=== PATIENT | male | born 1955 | race Caucasian/White ===

== ENCOUNTER → 2017-10-19 12:11 | Day surgery (SDC) | payer MEDICARE, MEDICAID ==
[~2017-10-19 12:11] MED LIST: Acetaminophen TAB* 325 MG ONE; Diazepam TAB(*) 5 MG PO PRN; Lidocaine 1% INJ* 10 MG/ML 30 ML SDV ONE; NS 0.9% 1000 ML* 1,000 ML IV SCH; ceFAZolin 2 GM PREMIX (*) 2 GM/50 ML BAG IVPB STA; ceFAZolin VIAL 1 GM in NS *SYRINGE * * 10 ML STA; fentaNYL* 50 MCG/ML 2 ML VIAL (100 MCG VIAL) ONE
[2017-10-19 16:19] VITALS: BP 111/64
--- NOTE | 2017-10-20 17:50 | OP ---
CC: Dr. Mustafa * DATE OF OPERATION: 10/19/17 - [facility] CATH DATE OF : 53 SURGEON: Matt Woods MD ANESTHESIA: Local anesthesia with conscious sedation. PRE-OP DIAGNOSES: Cardiomyopathy, ICD at elective replacement indicator. POST-OP DIAGNOSES: Cardiomyopathy, ICD at elective replacement indicator. OPERATIVE PROCEDURE: Single-chamber ICD generator change. ESTIMATED BLOOD LOSS: Nil. COMPLICATIONS: None. INDICATIONS: The patient is a 62-year-old gentleman with a history of cardiomyopathy, history of ICD implantation in 2007. The patient has been followed by Dr. Mustafa. His ICD has reached elective replacement indicator, generator change was recommended. DESCRIPTION OF PROCEDURE: The patient was brought to the procedure room in a fasting state. Informed consent had been obtained prior to the procedure. All labs had been reviewed. The patient was placed supine on the procedure table. His left deltopectoral area was cleaned and draped in usual fashion. 1% lidocaine was used for local anesthesia. A 4.5-cm incision was made in the superior aspect of the ICD, blunt dissection was carried down to the fiber sheath. The fiber sheath was opened and the ICD was removed from the pocket. The ICD was detached from the ventricular lead. The explanted device is a Medtronic, model I226KMB, serial number [id number]. It was removed and placed off the table. The ICD lead was interrogated and had an R-wave sensitivity of 13, impedance 460 ohms, threshold 0.7 volts at 0.5 milliseconds. The pocket was flushed. A new generator was attached to the ventricular lead. The new generator is a Medtronic model number [id number], serial number [id number]. The device was placed into the pocket. The surgical incision was closed in 3 layers. The patient was returned to the holding area in stable condition. [id number]/[facility] #: [id number] [facility]
== END | disposition home or self-care (01) ==
LOC: CHICATH 12:11
PROVIDERS: ATTEND Specialist
DX: Z45.02 Encounter for adjustment and management of automatic implantable cardiac defibrillator (principal); I42.8 Other cardiomyopathies; Z95.810 Presence of automatic (implantable) cardiac defibrillator; Z79.01 Long term (current) use of anticoagulants; I10 Essential (primary) hypertension; I25.10 Atherosclerotic heart disease of native coronary artery without angina pectoris; G47.33 Obstructive sleep apnea (adult) (pediatric); I73.9 Peripheral vascular disease, unspecified; R06.00 Dyspnea, unspecified; I49.5 Sick sinus syndrome; Z72.0 Tobacco use; I48.91 Unspecified atrial fibrillation; I25.2 Old myocardial infarction
CPT/HCPCS: 33262; 88300; A9270-GY; C1722; J0690; J3010

== ENCOUNTER → 2018-09-09 08:49 | Day surgery (SDC) | payer MEDICARE, MEDICAID ==
[~2018-09-09 08:49] MED LIST changes: -Acetaminophen TAB* 325 MG ONE; +Buffered Lidocaine 0.9% SYRIN* 5 ML/SYR SYRINGE INTRADERM ONE; -Diazepam TAB(*) 5 MG PO PRN; +Lactated Ringers 1000 ML Bag* 1,000 ML IV SCH; -Lidocaine 1% INJ* 10 MG/ML 30 ML SDV ONE; +Lidocaine 2% PF * 5 ML VIAL ONE; +Midazolam* 1 MG/ML 2 ML VIAL (2 MG) ONE; -NS 0.9% 1000 ML* 1,000 ML IV SCH; +Propofol* 10 MG/ML 20 ML BTL ONE; -ceFAZolin 2 GM PREMIX (*) 2 GM/50 ML BAG IVPB STA; -ceFAZolin VIAL 1 GM in NS *SYRINGE * * 10 ML STA
[2018-09-09 12:19] VITALS: BP 117/71
--- NOTE | 2018-09-09 23:32 | PRO ---
CC: Luis Felipe Avalos NP* COLONOSCOPY REPORT: DATE OF PROCEDURE: 09/09/18 PRIMARY CARE PHYSICIAN: Luis Felipe Avalos NP INDICATIONS FOR PROCEDURE: Screening colonoscopy. PROCEDURE PERFORMED: Complete colonoscopy to the cecum with cold snare polypectomy x4 and biopsy polypectomy x4. MEDICATIONS GIVEN: Please see anesthesia record. DESCRIPTION OF PROCEDURE: After the colonoscopy procedure, including the risks , benefits, and alternatives with risks not limited to perforation, surgery, missed lesions, and/or were explained to the patient, written informed consent was obtained and IV medication was given, a rectal exam was performed. Rectal exam was grossly unremarkable. The adult Olympus colonoscope was then inserted into the patient's rectum and advanced very carefully through the entirety of the colon and into the cecal base. The cecal base was normal in appearance. The terminal ileal valve was identified. Over the next 15 minutes , the scope was carefully withdrawn inspecting the mucosa. In the ascending colon, 2 polyps were removed; 1 was 1 cm in size, removed with cold snare polypectomy, this was in the distal portion of the ascending colon. An additional diminutive polyp was removed with biopsy polypectomy in the ascending colon. On return to the transverse colon, 2 small diminutive polyps removed with biopsy polypectomy, again 0.3 to 0.4 cm in size. On returning to the sigmoid colon, 3 polyps were removed with cold snare polypectomy of size 0.5 to 0.9 cm and 2 additional small polyps were removed with biopsy polypectomy. There was mild left-sided diverticulosis coli. On return to the rectum, the direct views were normal. On retroflexion, there was grade 1 internal hemorrhoids. The preparation was good. Of note, he did have a lipoma that was visualized at 30 cm with good pillowing. The scope was removed from the patient. He tolerated the procedure well. He returned to the recovery room in stable condition. IMPRESSION: 1. Complete colonoscopy to the cecum with cold snare and biopsy polypectomy. 2. Cold snare polypectomy x4 and biopsy polypectomy x4 as above. 3. Mild left-sided diverticulosis coli. 4. Grade 1 internal hemorrhoids. RECOMMENDATIONS: 1. Repeat colonoscopy in 3 years pending pathology. 2. Resume Coumadin in 48 hours given the size of polyps. [id number]/[facility] #: [id number] [facility]
== END | disposition home or self-care (01) ==
LOC: ENDO 08:49
PROVIDERS: ATTEND Internal Medicine Gastroenterology
DX: Z12.11 Encounter for screening for malignant neoplasm of colon (principal); D12.2 Benign neoplasm of ascending colon; D12.3 Benign neoplasm of transverse colon; D12.5 Benign neoplasm of sigmoid colon; K63.5 Polyp of colon; K57.30 Diverticulosis of large intestine without perforation or abscess without bleeding; K64.0 First degree hemorrhoids; D17.5 Benign lipomatous neoplasm of intra-abdominal organs; I25.2 Old myocardial infarction; J44.9 Chronic obstructive pulmonary disease, unspecified; I73.9 Peripheral vascular disease, unspecified; I48.91 Unspecified atrial fibrillation; I10 Essential (primary) hypertension; I25.10 Atherosclerotic heart disease of native coronary artery without angina pectoris; N40.0 Benign prostatic hyperplasia without lower urinary tract symptoms; Z95.810 Presence of automatic (implantable) cardiac defibrillator; Z79.01 Long term (current) use of anticoagulants; Z79.899 Other long term (current) drug therapy; F17.210 Nicotine dependence, cigarettes, uncomplicated
CPT/HCPCS: 88305; J2250; J2704; J3010

== ENCOUNTER 2018-11-15 10:58 | Day surgery (SDC) | payer MEDICARE, MEDICAID ==
[~2018-11-15 10:58] MED LIST changes: +Acetaminophen TAB* 325 MG PO PRN; -Buffered Lidocaine 0.9% SYRIN* 5 ML/SYR SYRINGE INTRADERM ONE; +Cyclopentolate 1% OPTH.SOL* 2 ML BTL ONE; +Ketorolac 0.5% OPHTH (NF) 0.5 % 5 ML BTL ONE; -Lactated Ringers 1000 ML Bag* 1,000 ML IV SCH; +Lidocaine 1%* 5 ML VIAL ONE; -Lidocaine 2% PF * 5 ML VIAL ONE; -Midazolam* 1 MG/ML 2 ML VIAL (2 MG) ONE; +Neomycin/Polymy/Dex OPHTH.OIN* 3.5 GM ONE; +Phenylephrine 2.5% OPTH.SOL* 2 ML BTL ONE; +Povidone Iodine 5% OPTH* 30 ML BTL ONE; -Propofol* 10 MG/ML 20 ML BTL ONE; +Tetracaine 0.5% OPTH.SOL 4 ML* 1 DROP BTL ONE; +Tropicamide 1% OPTH.SOL* BTL ONE; +acetaZOLAMIDE TAB* 250 MG ONE; -fentaNYL* 50 MCG/ML 2 ML VIAL (100 MCG VIAL) ONE
[2018-11-15] MEDS ORDERED: Midazolam* 1 MG/ML 2 ML VIAL (2 MG) ONE (12:17)
[2018-11-15 13:21] VITALS: BP 88/56
--- NOTE | 2018-11-15 15:39 | OP ---
DATE OF OPERATION: 11/15/2018 - [facility] DATE OF : 1955. SURGEON: Loc Zapien MD ANESTHESIA: Monitored anesthesia care. PREOPERATIVE DIAGNOSIS: Cataract, right eye. POSTOPERATIVE DIAGNOSIS: Cataract, right eye. OPERATIVE PROCEDURE: Extracapsular cataract extraction of the right eye with intraocular lens implant. IMPLANT: SN60WF 20.0 diopter lens to the right eye. COMPLICATIONS: None. DESCRIPTION OF PROCEDURE: The patient was given phenylephrine 2.5 % and cyclopentolate 1% eye drops to the operative eye in the preoperative area. The patient was taken to the operating room where a time-out was taken to identify the correct patient, site, and side of surgery. The patient's right eye was prepped and draped in the usual sterile fashion with 5% Betadine. A second time- out was taken to verify the correct patient, side, and site of surgery, as well as the correct lens implant. A lid speculum was placed to the right eye. A 1mm paracentesis blade was used to make a clear corneal incision. Preservative-free 1% lidocaine was injected into the anterior chamber. DisCoVisc was then injected into the anterior chamber. A 2.75 mm keratome blade was used to make a triplanar incision. A cystotome initiated a capsulorrhexis, which was completed with Utrata forceps in a continuous and curvilinear manner. Hydrodissection of the lens was performed with BSS on a cannula. The lens could be spun in a capsular bag. The phacoemulsification handpiece was used with a divide-and- conquer technique to remove the nucleus. The I/A handpiece then removed the residual cortical lens material. DisCoVisc was injected to inflate the capsular bag. The planned SN60WF 20.0 diopter lens was injected into the capsular bag. The residual DisCoVisc was removed from the eye with the I/A handpiece. The corneal incisions were hydrated and no leaks occurred at physiologic pressure around 20 mmHg per palpation. The lid speculum was removed and drapes were removed. Maxitrol ointment was placed to the surface of the operative eye. An adhesive patch and shield was then placed on the operative eye. The patient was taken to the post-operative area in stable condition. [id number]/[facility] #: [id number] [facility]
== END 2018-11-15 13:33 | disposition home or self-care (01) ==
LOC: OREAST 10:58
PROVIDERS: ATTEND Student in an Organized Health Care Education/Training Program
DX: H25.811 Combined forms of age-related cataract, right eye (principal); Z72.0 Tobacco use; J44.9 Chronic obstructive pulmonary disease, unspecified; I10 Essential (primary) hypertension; E78.00 Pure hypercholesterolemia, unspecified; Z95.810 Presence of automatic (implantable) cardiac defibrillator; I25.2 Old myocardial infarction; Z79.01 Long term (current) use of anticoagulants; I42.9 Cardiomyopathy, unspecified; I20.9 Angina pectoris, unspecified
CPT/HCPCS: A9270-GY; J2250; V2632

== ENCOUNTER 2018-11-22 10:12 | Day surgery (SDC) | payer MEDICARE, MEDICAID ==
[~2018-11-22 10:12] MED LIST changes: -Cyclopentolate 1% OPTH.SOL* 2 ML BTL ONE; -Ketorolac 0.5% OPHTH (NF) 0.5 % 5 ML BTL ONE; -Lidocaine 1%* 5 ML VIAL ONE; -Neomycin/Polymy/Dex OPHTH.OIN* 3.5 GM ONE; -Phenylephrine 2.5% OPTH.SOL* 2 ML BTL ONE; -Povidone Iodine 5% OPTH* 30 ML BTL ONE; -Tetracaine 0.5% OPTH.SOL 4 ML* 1 DROP BTL ONE; -Tropicamide 1% OPTH.SOL* BTL ONE; -acetaZOLAMIDE TAB* 250 MG ONE
[2018-11-22] MEDS ORDERED: Buffered Lidocaine 1% SYRIN* 1 ML/SYRINGE INTRADERM ONE (10:59)
[2018-11-22] MEDS ORDERED: Midazolam* 1 MG/ML 5 ML VIAL (5 MG) ONE (11:50)
[2018-11-22 13:05] VITALS: BP 96/61
[2018-11-22] MEDS ORDERED: Cyclopentolate 1% OPTH.SOL* 2 ML BTL ONE (13:11)
[2018-11-22] MEDS ORDERED: Ketorolac 0.5% OPHTH (NF) 0.5 % 5 ML BTL ONE (13:11)
[2018-11-22] MEDS ORDERED: Lidocaine 1%* 5 ML VIAL ONE (13:11)
[2018-11-22] MEDS ORDERED: Neomycin/Polymy/Dex OPHTH.OIN* 3.5 GM ONE (13:11)
[2018-11-22] MEDS ORDERED: Tetracaine 0.5% OPTH.SOL 4 ML* 1 DROP BTL ONE (13:11)
[2018-11-22] MEDS ORDERED: Povidone Iodine 5% OPTH* 30 ML BTL ONE (13:11)
[2018-11-22] MEDS ORDERED: Tropicamide 1% OPTH.SOL* BTL ONE (13:11)
[2018-11-22] MEDS ORDERED: acetaZOLAMIDE TAB* 250 MG ONE (13:11)
--- NOTE | 2018-11-22 14:01 | OP ---
DATE OF OPERATION: 11/22/18 - [facility] DATE OF : 53 SURGEON: Loc Zapien MD ANESTHESIA: Monitored anesthesia care. PREOPERATIVE DIAGNOSIS: Cataract, left eye. POSTOPERATIVE DIAGNOSIS: Cataract, left eye. OPERATIVE PROCEDURE: Extracapsular cataract extraction of the left eye with intraocular lens implant. IMPLANT: SN60WF 21.5 diopter lens to the left eye. COMPLICATIONS: None. DESCRIPTION OF PROCEDURE: The patient was given phenylephrine 2.5 % and cyclopentolate 1% eye drops to the operative eye in the preoperative area. The patient was taken to the operating room where a time-out was taken to identify the correct patient, site, and side of surgery. The patient's left eye was prepped and draped in the usual sterile fashion with 5% Betadine. A second time- out was taken to verify the correct patient, side, and site of surgery, as well as the correct lens implant. A lid speculum was placed to the left eye. A 1mm paracentesis blade was used to make a clear corneal incision. Preservative-free 1% lidocaine was injected into the anterior chamber. DisCoVisc was then injected into the anterior chamber. A 2.75 mm keratome blade was used to make a triplanar incision. A cystotome initiated a capsulorrhexis, which was completed with Utrata forceps in a continuous and curvilinear manner. Hydrodissection of the lens was performed with BSS on a cannula. The lens could be spun in a capsular bag. The phacoemulsification handpiece was used with a divide-and- conquer technique to remove the nucleus. The I/A handpiece then removed the residual cortical lens material. DisCoVisc was injected to inflate the capsular bag. The planned SN60WF 21.5 diopter lens was injected into the capsular bag. The residual DisCoVisc was removed from the eye with the I/A handpiece. The corneal incisions were hydrated and no leaks occurred at physiologic pressure around 20 mmHg per palpation. The lid speculum was removed and drapes were removed. Maxitrol ointment was placed to the surface of the operative eye. An adhesive patch and shield was then placed on the operative eye. The patient was taken to the postoperative area in stable condition. [id number]/[facility] #: [id number] [facility]
== END 2018-11-22 13:07 | disposition home or self-care (01) ==
LOC: OREAST 10:12
PROVIDERS: ATTEND Student in an Organized Health Care Education/Training Program
DX: H25.12 Age-related nuclear cataract, left eye (principal); Z72.0 Tobacco use; Z79.01 Long term (current) use of anticoagulants; J44.9 Chronic obstructive pulmonary disease, unspecified; I10 Essential (primary) hypertension; E78.00 Pure hypercholesterolemia, unspecified; Z95.5 Presence of coronary angioplasty implant and graft; Z95.0 Presence of cardiac pacemaker; I25.10 Atherosclerotic heart disease of native coronary artery without angina pectoris; I25.2 Old myocardial infarction; I42.9 Cardiomyopathy, unspecified
CPT/HCPCS: A9270-GY; J2250; V2632

== ENCOUNTER 2018-12-14 07:34 | Emergency (ER) | payer MEDICARE, MEDICAID ==
[2018-12-14] MEDS: NS 0.9% 1000 ML** 1,000 ML IV ONE ×2 (07:52→08:45)
[2018-12-14 08:12] LABS: ABS Basophils 0 10^3/ul (0-0.2); ABS Eosinophils 0.1 10^3/ul (0-0.6); ABS Lymphocytes 1.9 10^3/ul (1.0-4.8); ABS Monocytes 1.1 10^3/ul (0-0.8); ABS Neutrophils 8.6 10^3/ul (1.5-7.7); ABS Nucleated RBC 0 10^3/ul; Eosinophil % 0.5 %; Hematocrit 45 % (36-46); Lymphocyte % 15.9 %; Mean Corpuscular HGB Conc 34 g/dL (31-36); Mean Corpuscular Hemoglobin 32 pg (27-31); Mean Corpuscular Volume 96 fL (80-94); Mean Platelet Volume 7.9 fL (7.4-10.4); Nucleated Red Blood Cells % 0.2; Platelet Count 132 10^3/uL (150-450); Red Blood Count 4.66 10^6 /uL (4.18-5.48); Red Cell Distribution Width 14 % (10.5-15); White Blood Count 11.7 10^3/uL (3.5-10.8)
[2018-12-14 08:31] LABS: Albumin 3.7 g/dL (3.2-5.2); Albumin/Globulin Ratio 1.7 (1-3); BUN/Creatinine Ratio 24.9 (8-20); C Reactive Protein 3.11 mg/L (<8.01); Calcium 9.2 mg/dL (8.6-10.3); EGFR African American 35.7 (>60); EGFR Non-African American 29.5 (>60); Globulin 2.2 g/dL (2-4); Magnesium 2.3 mg/dL (1.9-2.7); Total Bilirubin 1.1 mg/dL (0.2-1.0); Total Protein 5.9 g/dL (6.4-8.9); Troponin I 0.02 ng/mL (<0.04)
[2018-12-14] MEDS ORDERED: NS 0.9% 1000 ML** 1,000 ML IV ONE (08:46)
[2018-12-14 08:55] LABS: INR 6.58 (0.77-1.02)
[2018-12-14 09:12] LABS: TSH (Thyroid Stimulating Horm) 2.67 mcIU/mL (0.34-5.60)
[2018-12-14 09:52] LABS: Urine Appearance Clear; Urine Bilirubin Negative (Negative); Urine Blood Negative (Negative); Urine Color Yellow; Urine Glucose Negative (Negative); Urine Ketones Trace (Negative); Urine Nitrite Negative (Negative); Urine Protein Negative (Negative); Urine Specific Gravity 1.013 (1.010-1.030); Urine Urobilinogen Negative (Negative)
[2018-12-14 10:46] LABS: Albumin 3.8 g/dL (3.2-5.2); Albumin/Globulin Ratio 1.9 (1-3); BUN/Creatinine Ratio 25.6 (8-20); Calcium 8.6 mg/dL (8.6-10.3); EGFR African American 41.1 (>60); Potassium 3.7 mmol/L (3.5-5.0); Total Bilirubin 1.2 mg/dL (0.2-1.0); Total Protein 5.8 g/dL (6.4-8.9)
[2018-12-14 11:14] VITALS: BP 90/61
--- NOTE | 2018-12-14 16:50 | ED ---
HPI Cardiac - HPI Summary HPI Summary: Patient is a 63-year-old male who was recently seen for bronchitis presenting to the ED with "weakness." He states symptoms have been present x several days. He denies any cough or congestion. He denies any headache or visual changes. Patient endorses 2 episodes of diarrhea in the past 2 days, this is not profuse or malodorous. Denies any nausea or vomiting. Currently taking warfarin for A. fib as well as blood pressure medications. No change in his medications. PCP is Cat Avalos. Patient states symptoms are not alleviated with resting and he is not attempted to exert himself in the last few days. He denies any worsening cough or congestion. Denies any SOB or CP. Denies urinary symptoms. He states he is unable to describe his symptoms other then himself as "weak." - History of Current Complaint Chief Complaint: EDGeneral Stated Complaint: GENERAL ILLNESS PER EMS Time Seen by Provider: 12/14/18 07:38 Hx Obtained From: Patient Onset/Duration: Started Days Ago Timing: Constant Initial Severity: Moderate Current Severity: Moderate Pain Intensity: 0 Pain Scale Used: 0-10 Numeric Aggravating Factor(s): Exertion Alleviating Factor(s): Rest Associated Signs and Symptoms: Positive: Negative - Risk Factors Pulmonary Embolism Risk Factors: Negative Cardiac Risk Factors: Negative TAD Risk Factors: Negative - Allergy/Home Medications Allergies/Adverse Reactions: Allergies Allergy/AdvReac Type Severity Reaction Status Date / Time No Known Allergies Allergy Verified 12/11/18 06:52 PMH/Surg Hx/FS Hx/Imm Hx Previously Healthy: Yes Endocrine/Hematology History: Reports: Hx Anticoagulant Therapy - warfarin Denies: Hx Diabetes Cardiovascular History: Reports: Hx Congestive Heart Failure - on durtetics, Hx Coronary Artery Disease, Hx Hypercholesterolemia, Hx Hypertension, Hx Pacemaker/ ICD, Hx Peripheral Vascular Disease - poor circulation to legs, Other Cardiovascular Problems/Disorders - CARDIOMYOPATHY Respiratory History: Reports: Hx Asthma, Hx Chronic Obstructive Pulmonary Disease (COPD), Hx Sleep Apnea - does not use a machine, Other Respiratory Problems/Disorders - smoker GI History: Reports: Other GI Disorders - umbilical hernia History: Reports: Hx Kidney Stones - x2, last one 2015, Other Problems/ Disorders - BPH Denies: Hx Renal Disease Musculoskeletal History: Reports: Hx Arthritis, Other Musculoskeletal History - sciatica at times Sensory History: Reports: Hx Cataracts - both eyes, Hx Contacts or Glasses - glasses, Hx Hearing Aid - left ear- don't wear Opthamlomology History: Reports: Hx Cataracts - both eyes, Hx Contacts or Glasses - glasses Neurological History: Reports: Hx Migraine - many years ago, Hx Nerve Disease - 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 Lt FEMUR - EXPLORATORY -. AAA- GRAFTING/MESH (MADE OF VELOUR GRAFTING)- Pt HAS A CARD. KIDNEY STENT. tonsillectomy as a child Hx Anesthesia Reactions: No - Immunization History Hx Pertussis Vaccination: No Immunizations Up to Date: Yes Infectious Disease History: No Infectious Disease History: Denies: Traveled Outside the [place] in Last 30 Days - Family History Known Family History: Positive: None, Diabetes, Other - Cancer, Non-Contributory Family History: R & n/C - Social History Occupation: Unemployed Lives: Alone Alcohol Use: None Hx Substance Use: No Substance Use Type: Reports: Marijuana Substance Use Comment - Amount & Last Used: occassionally Hx Tobacco Use: Yes Smoking Status (MU): Light Every Day Tobacco Smoker Amount Used/How Often: 10 cigarettes a day Review of Systems Constitutional: Negative Negative: Fever, Chills, Fatigue, Skin Diaphoresis Negative: Palpitations, Chest Pain Negative: Shortness Of Breath, Cough Negative: Abdominal Pain, Vomiting, Diarrhea, Nausea Positive: no symptoms reported, see HPI Negative: Arthralgia, Myalgia Positive: Weakness All Other Systems Reviewed And Are Negative: Yes Physical Exam Triage Information Reviewed: Yes Vital Signs On Initial Exam: Initial Vitals Temp Pulse Resp BP Pulse Ox 97 F 64 16 83/58 96 12/14/18 07:40 12/14/18 07:40 12/14/18 07:40 12/14/18 07:40 12/14/18 07:40 Vital Signs Reviewed: Yes Appearance: Positive: Well-Appearing, Well-Nourished Skin: Positive: Warm, Skin Color Reflects Adequate Perfusion Neck: Positive: Supple, No Lymphadenopathy Respiratory/Lung Sounds: Positive: Clear to Auscultation, Breath Sounds Present Cardiovascular: Positive: RRR, Pulses are Symmetrical in both Upper and Lower Extremities Musculoskeletal: Positive: Strength/ROM Intact Neurological: Positive: Speech Normal Psychiatric: Positive: Affect/Mood Appropriate AVPU Assessment: Alert Diagnostics - Vital Signs Vital Signs Temp Pulse Resp BP Pulse Ox 12/14/18 11:19 97.6 F 58 16 90/61 97 12/14/18 11:11 58 15 90/61 97 12/14/18 11:00 64 17 94 12/14/18 10:43 63 13 86/57 97 12/14/18 10:42 19 61/32 12/14/18 10:11 67 16 88/59 96 12/14/18 10:00 68 13 96 12/14/18 09:42 78 15 78/58 96 12/14/18 09:30 18 78/54 12/14/18 09:00 69 20 88 12/14/18 08:41 72 13 67/48 95 12/14/18 08:11 65 15 79/61 96 12/14/18 08:00 64 14 96 12/14/18 07:41 67 9 83/58 95 12/14/18 07:40 97 F 69 16 83/58 97 - Laboratory Lab Results: Lab Results 12/14/18 12/14/18 12/14/18 Range/Units 08:01 08:01 08:01 WBC 11.7 H (3.5-10.8) 10^3/uL RBC 4.66 (4.18-5.48) 10^6 /uL Hgb 15.0 (14.0-18.0) g/dL Hct 45 (36-46) % MCV 96 H (80-94) fL MCH 32 H (27-31) pg MCHC 34 (31-36) g/dL RDW 14 (10.5-15) % Plt Count 132 L (150-450) 10^3/uL MPV 7.9 (7.4-10.4) fL Neut % (Auto) 73.5 % Lymph % (Auto) 15.9 % [place] % (Auto) 9.7 % Eos % (Auto) 0.5 % Baso % (Auto) 0.4 % Absolute Neuts (auto) 8.6 H (1.5-7.7) 10^3/ul Absolute Lymphs (auto) 1.9 (1.0-4.8) 10^3/ul Absolute Monos (auto) 1.1 H (0-0.8) 10^3/ul Absolute Eos (auto) 0.1 (0-0.6) 10^3/ul Absolute Basos (auto) 0 (0-0.2) 10^3/ul Absolute Nucleated RBC 0 10^3/ul Nucleated RBC % 0.2 INR (Anticoag Therapy) 6.58 H* (0.77-1.02) APTT 38.0 H (26.0-36.3) seconds Sodium 133 L (135-145) mmol/L Potassium 4.0 (3.5-5.0) mmol/L Chloride 102 (101-111) mmol/L Carbon Dioxide 24 (22-32) mmol/L Anion Gap 7 (2-11) mmol/L BUN 56 H (6-24) mg/dL Creatinine 2.25 H (0.67-1.17) mg/dL Est GFR ( Amer) 35.7 (>60) Est GFR (Non-Af Amer) 29.5 (>60) BUN/Creatinine Ratio 24.9 H (8-20) Glucose 100 (70-100) mg/dL Lactic Acid (0.5-2.0) mmol/L Calcium 9.2 (8.6-10.3) mg/dL Magnesium 2.3 (1.9-2.7) mg/dL Total Bilirubin 1.10 H (0.2-1.0) mg/dL AST 19 (13-39) U/L ALT 11 (7-52) U/L Alkaline Phosphatase 44 (34-104) U/L Troponin I 0.02 (<0.04) ng/mL C-Reactive Protein 3.11 (<8.01) mg/L B-Natriuretic Peptide (<=100) pg/mL Total Protein 5.9 L (6.4-8.9) g/dL Albumin 3.7 (3.2-5.2) g/dL Globulin 2.2 (2-4) g/dL Albumin/Globulin Ratio 1.7 (1-3) TSH 2.67 (0.34-5.60) mcIU/mL Urine Color Urine Appearance Urine pH (5-9) Ur Specific [place] (1.010-1.030) Urine Protein (Negative) Urine Ketones (Negative) Urine Blood (Negative) Urine Nitrate (Negative) Urine Bilirubin (Negative) Urine Urobilinogen (Negative) Ur Leukocyte Esterase (Negative) Urine Glucose (Negative) 12/14/18 12/14/18 12/14/18 Range/Units 08:01 08:01 09:32 WBC (3.5-10.8) 10^3/uL RBC (4.18-5.48) 10^6 /uL Hgb (14.0-18.0) g/dL Hct (36-46) % MCV (80-94) fL MCH (27-31) pg MCHC (31-36) g/dL RDW (10.5-15) % Plt Count (150-450) 10^3/uL MPV (7.4-10.4) fL Neut % (Auto) % Lymph % (Auto) % [place] % (Auto) % Eos % (Auto) % Baso % (Auto) % Absolute Neuts (auto) (1.5-7.7) 10^3/ul Absolute Lymphs (auto) (1.0-4.8) 10^3/ul Absolute Monos (auto) (0-0.8) 10^3/ul Absolute Eos (auto) (0-0.6) 10^3/ul Absolute Basos (auto) (0-0.2) 10^3/ul Absolute Nucleated RBC 10^3/ul Nucleated RBC % INR (Anticoag Therapy) (0.77-1.02) APTT (26.0-36.3) seconds Sodium (135-145) mmol/L Potassium (3.5-5.0) mmol/L Chloride (101-111) mmol/L Carbon Dioxide (22-32) mmol/L Anion Gap (2-11) mmol/L BUN (6-24) mg/dL Creatinine (0.67-1.17) mg/dL Est GFR ( Amer) (>60) Est GFR (Non-Af Amer) (>60) BUN/Creatinine Ratio (8-20) Glucose (70-100) mg/dL Lactic Acid 1.1 (0.5-2.0) mmol/L Calcium (8.6-10.3) mg/dL Magnesium (1.9-2.7) mg/dL Total Bilirubin (0.2-1.0) mg/dL AST (13-39) U/L ALT (7-52) U/L Alkaline Phosphatase (34-104) U/L Troponin I (<0.04) ng/mL C-Reactive Protein (<8.01) mg/L B-Natriuretic Peptide 141 H (<=100) pg/mL Total Protein (6.4-8.9) g/dL Albumin (3.2-5.2) g/dL Globulin (2-4) g/dL Albumin/Globulin Ratio (1-3) TSH (0.34-5.60) mcIU/mL Urine Color Yellow Urine Appearance Clear Urine pH 5.0 (5-9) Ur Specific [place] 1.013 (1.010-1.030) Urine Protein Negative (Negative) Urine Ketones Trace A (Negative) Urine Blood Negative (Negative) Urine Nitrate Negative (Negative) Urine Bilirubin Negative (Negative) Urine Urobilinogen Negative (Negative) Ur Leukocyte Esterase Negative (Negative) Urine Glucose Negative (Negative) 12/14/18 Range/Units 10:19 WBC (3.5-10.8) 10^3/uL RBC (4.18-5.48) 10^6 /uL Hgb (14.0-18.0) g/dL Hct (36-46) % MCV (80-94) fL MCH (27-31) pg MCHC (31-36) g/dL RDW (10.5-15) % Plt Count (150-450) 10^3/uL MPV (7.4-10.4) fL Neut % (Auto) % Lymph % (Auto) % [place] % (Auto) % Eos % (Auto) % Baso % (Auto) % Absolute Neuts (auto) (1.5-7.7) 10^3/ul Absolute Lymphs (auto) (1.0-4.8) 10^3/ul Absolute Monos (auto) (0-0.8) 10^3/ul Absolute Eos (auto) (0-0.6) 10^3/ul Absolute Basos (auto) (0-0.2) 10^3/ul Absolute Nucleated RBC 10^3/ul Nucleated RBC % INR (Anticoag Therapy) (0.77-1.02) APTT (26.0-36.3) seconds Sodium 134 L (135-145) mmol/L Potassium 3.7 (3.5-5.0) mmol/L Chloride 103 (101-111) mmol/L Carbon Dioxide 25 (22-32) mmol/L Anion Gap 6 (2-11) mmol/L BUN 51 H (6-24) mg/dL Creatinine 1.99 H (0.67-1.17) mg/dL Est GFR ( Amer) 41.1 (>60) Est GFR (Non-Af Amer) 34.0 (>60) BUN/Creatinine Ratio 25.6 H (8-20) Glucose 88 (70-100) mg/dL Lactic Acid (0.5-2.0) mmol/L Calcium 8.6 (8.6-10.3) mg/dL Magnesium (1.9-2.7) mg/dL Total Bilirubin 1.20 H (0.2-1.0) mg/dL AST 19 (13-39) U/L ALT 12 (7-52) U/L Alkaline Phosphatase 40 (34-104) U/L Troponin I (<0.04) ng/mL C-Reactive Protein (<8.01) mg/L B-Natriuretic Peptide (<=100) pg/mL Total Protein 5.8 L (6.4-8.9) g/dL Albumin 3.8 (3.2-5.2) g/dL Globulin 2.0 (2-4) g/dL Albumin/Globulin Ratio 1.9 (1-3) TSH (0.34-5.60) mcIU/mL Urine Color Urine Appearance Urine pH (5-9) Ur Specific [place] (1.010-1.030) Urine Protein (Negative) Urine Ketones (Negative) Urine Blood (Negative) Urine Nitrate (Negative) Urine Bilirubin (Negative) Urine Urobilinogen (Negative) Ur Leukocyte Esterase (Negative) Urine Glucose (Negative) Result Diagrams: 12/14/18 08:01 12/14/18 10:19 Lab Statement: Any lab studies that have been ordered have been reviewed, and results considered in the medical decision making process. Disposition - Course Course Of Treatment: During the course treatment, the patient is given 2 L fluids. Labs obtained which show a supratherapeutic INR at 6.58. WBC is 11.7. Increased BUN creatinine at 56 and 2.25 respectively. He is redrawn at 51 and 1.99 after fluids given. BP soft at 83/58. This subsequently increased to 105/75 prior to discharge. Patient states he is feeling improved after 2L fluids. He may be having weakness d/t his low BP. He will not take his BP medications this morning and will follow up with PCP for recheck. He will also hold 2 doses of his warfarin and recheck. He voices understanding of instructions. - Diagnoses Provider Diagnoses: Weakness, Supratherapeutic INR, Hypotension Discharge - Sign-Out/Discharge Documenting (check all that apply): Patient Departure Patient Received Moderate/Deep Sedation with Procedure: No - Discharge Plan Condition: Stable Disposition: HOME Patient Education Materials: Elevated INR (ED) Referrals: Luis Felipe Avalos, OPTOMETRY PROFESSOR [Primary Care Provider] - Additional Instructions: Hold off on your warfarin dosages x 2, then recheck Please call Luis Felipe Avalos for a follow up. Drink plenty of water - you are dehydrated Do not take your BP medications today - if you still feel weak tomorrow, I would suggest calling your PCP and doing a recheck of your blood pressure - Billing Disposition and Condition Condition: STABLE Disposition: Home
== END 2018-12-14 11:19 | disposition home or self-care (01) ==
LOC: ED 07:34
DX: R53.1 Weakness (principal); I95.9 Hypotension, unspecified; R79.1 Abnormal coagulation profile; F17.210 Nicotine dependence, cigarettes, uncomplicated; Z79.01 Long term (current) use of anticoagulants; I50.9 Heart failure, unspecified; Z87.442 Personal history of urinary calculi; I48.91 Unspecified atrial fibrillation; Z95.810 Presence of automatic (implantable) cardiac defibrillator
CPT/HCPCS: 36415; 71046; 80053; 81003; 83605; 83735; 83880; 84443; 84484; 85025; 85610; 85730; 86140; 93005; 96360; 96361; 99284

== ENCOUNTER 2019-10-19 11:17 | Day surgery (SDC) | payer MEDICARE, MEDICAID ==
[~2019-10-19 11:17] MED LIST changes: -Acetaminophen TAB* 325 MG PO PRN; +HYDROmorphone INJ1* 1 MG/ML SYRINGE IV PRN; +Naloxone* 0.4 MG/ML 1 ML VIAL IV PRN; +Ondansetron INJ* 2 MG/ML VIAL IV PRN
[2019-10-19 12:13] LABS: INR 2.18 (0.82-1.09)
[2019-10-19] MEDS ORDERED: Benzocaine/Butamben/Tetracain (CETACAINE - SINGLE USE) 5 gm TOPICAL ONE (12:33)
[2019-10-19] MEDS ORDERED: Rocuronium* 10 MG/ML VIAL ONE (13:15)
[2019-10-19] MEDS ORDERED: Propofol* 10 MG/ML 20 ML BTL ONE (13:15)
[2019-10-19] MEDS ORDERED: Sugammadex * 200 MG/2 ML VIAL IV PUSH ONE (14:40)
[2019-10-19] MEDS ORDERED: Levalbuterol 1.25MG/0.5ML NEB ONE (15:14)
--- NOTE | 2019-10-19 15:35 | BRIEFOPN ---
Brief Operative/Procedure Note - Operation Details Pre-Op Diagnosis: Lung mass Post-Op Diagnosis: Lung cancer Procedures: Bronchoscopy/EBUS with FNA of mediastinal, hilar nodes and endobronchial biopsy from KAREEN lesion Surgeon(s)/Proceduralists: filomena Bajwa Anesthesia: GA Estimated Blood Loss: Negligable Findings: Endobronchial lesion in KAREEN takeoff with narrowing of bronchus. Lymph nodes in mediastinum on both sides negative for metastatic disease. Endobrochial lesion positive for malignancy Specimen(s)/Culture(s) Description: Lymph nodes- R4, station7, R10, L4, L10- FNA for cytology. Endobronchial biopsies left side for surgical biopsy in formalin Complications: None
[2019-10-19 17:02] VITALS: BP 92/62
--- NOTE | 2019-10-20 02:22 | PRO ---
BRONCHOSCOPY REPORT: DATE OF PROCEDURE: 10/19/19 PROCEDURE PERFORMED: Bronchoscopy with endobronchial ultrasound-guided fine needle aspiration of mediastinal hilar nodes and endobronchial lesion. Endobronchial biopsies from endobronchial lesion near the left upper lobe. ANESTHESIA: General anesthesia. DESCRIPTION OF PROCEDURE: Informed consent was obtained from the patient prior to the procedure after all the risks and benefits were thoroughly explained. The patient recently was noted to have abnormal CT chest with left hilar mass. Given smoking history, concerning for malignancy. The patient was intubated with size 9.5 endotracheal tube. Flexible Olympus bronchoscope was inserted through ET tube for airway inspection after appropriate time-out was agreed on by attending staff. Informed consent was obtained from the patient prior to the procedure after all the risks and benefits were thoroughly explained. The patient noted to have thin secretions, which were suctioned. No endo-bronchial lesions noted on the right side. All airways were patent and open. Bronchoscope was then advanced into left bronchial tree. The patient noted to have endobronchial lesion with irregularity of mucus near the takeoff of the left upper lobe bronchus with narrowing of left upper lobe bronchus and also lower lobe bronchus. Bronchoscope could not be advanced into the left upper lobe bronchus. Station R4 was sampled with 1 pass. Rapid on-site evaluation revealed lymphatic tissue with no malignant cells. Station 7 was sampled with 1 pass. Rapid on-site evaluation revealed lymphatic tissue with no malignant cells. R10 was also sampled with 1 pass. Rapid on-site evaluation revealed lymphatic tissue with no malignant cells. Bronchoscope was then advanced into the left side. L4 was sampled with 2 passes. Rapid on-site evaluation revealed lymphatic tissue with no malignant cells. L10 was sampled also with 1 pass, which did not reveal any malignant cells. Endobronchial lesion area was then sampled withe 6 passes. Rapid on-site evaluation revealed atypical cells. Air-dried cells were also prepared. EBUS bronchoscope was inserted and regular bronchoscope was inserted and endobronchial biopsies were obtained and the endobronchial abnormality noted in the left upper lobe. Specimen was placed in formalin. The patient tolerated the procedure well. The patient was extubated and seen in Recovery in optimal condition. [id number] #: [id number] [facility]
== END 2019-10-19 17:31 | disposition home or self-care (01) ==
LOC: OR 11:17
PROVIDERS: ATTEND Internal Medicine
DX: C34.12 Malignant neoplasm of upper lobe, left bronchus or lung (principal); I50.9 Heart failure, unspecified; J44.9 Chronic obstructive pulmonary disease, unspecified; I25.10 Atherosclerotic heart disease of native coronary artery without angina pectoris; I73.9 Peripheral vascular disease, unspecified; I48.91 Unspecified atrial fibrillation; Z99.81 Dependence on supplemental oxygen; G47.33 Obstructive sleep apnea (adult) (pediatric); Z79.01 Long term (current) use of anticoagulants; F17.210 Nicotine dependence, cigarettes, uncomplicated; I08.1 Rheumatic disorders of both mitral and tricuspid valves; I27.20 Pulmonary hypertension, unspecified
CPT/HCPCS: 36415; 81445; 85610; 88172; 88173; 88177; 88305; 88342; 88360; A9270-GY; J2704